=== PATIENT | male | born 1965 | race Caucasian/White ===

== ENCOUNTER 2022-02-28 17:39 | Inpatient (IN) | payer MEDICAID ==
[~2022-02-28] VITALS: Ht 165.1 cm; Wt 112.0 kg
[~2022-02-28 17:39] MED LIST: ABIL5TAB OR; ALLE25CA OR; HYDR25TA6 OR; SIMV20TA2 OR; cogentin PO; haldol PO; haldol decanoate IM
[2022-02-28 19:40] LABS: HEMATOCRIT 45.4 % (42.0-52.0); HEMOGLOBIN 14.7 g/dl (13.5-17.5); MEAN CORPUSCULAR HEMOGLOBIN 31.2 pg (27.0-33.0); MEAN CORPUSCULAR HGB CONC 32.4 g/dl (32.0-36.5); MEAN CORPUSCULAR VOLUME 96.4 fl (80.0-96.0); PLATELET COUNT, AUTOMATED 172 10^3/uL (150-450); RED BLOOD COUNT 4.71 10^6/uL (4.30-6.10); WHITE BLOOD COUNT 9.5 10^3/uL (4.0-10.0)
[2022-02-28 20:07] LABS: AMPHETAMINES LEVEL URINE NEGATIVE (NEGATIVE); BARBITURATES URINE NEGATIVE (NEGATIVE); BENZODIAZEPINES URINE NEGATIVE (NEGATIVE); CANNABINOIDS URINE NEGATIVE (NEGATIVE); COCAINE METABOLITE URINE NEGATIVE (NEGATIVE); METHADONE URINE NEGATIVE (NEGATIVE); OPIATES URINE NEGATIVE (NEGATIVE); PHENCYCLIDINE URINE NEGATIVE (NEGATIVE)
[2022-02-28 20:22] LABS: ACETAMINOPHEN LEVEL < 2.0 UG/ML (10.0-30.0); ALBUMIN 4.1 GM/DL (3.2-5.2); ALT/SGPT 28 U/L (12-78); BILIRUBIN,DIRECT 0.2 MG/DL (0.0-0.2); BILIRUBIN,TOTAL 0.4 MG/DL (0.2-1.0); BLOOD UREA NITROGEN 23 MG/DL (7-18); CALCIUM LEVEL 9.1 MG/DL (8.5-10.1); CARBON DIOXIDE LEVEL 25 MEQ/L (21-32); CHLORIDE LEVEL 111 MEQ/L (98-107); CREATININE FOR GFR 0.87 MG/DL (0.70-1.30); ETHYL ALCOHOL (ETHANOL) < 0.003 % (0.000-0.010); GLOMERULAR FILTRATION RATE > 60.0 (>56); GLUCOSE, FASTING 104 MG/DL (70-100); POTASSIUM SERUM 4.6 MEQ/L (3.5-5.1); SALICYLATE LEVEL < 1.7 MG/DL (5.0-30.0); SODIUM LEVEL 140 MEQ/L (136-145); TOTAL PROTEIN 7.7 GM/DL (6.4-8.2)
[2022-03-02] MEDS ORDERED: pt comment (09:55)
[2022-03-02] MEDS ORDERED: D200CAP3 PO (19:04)
[2022-03-02] MEDS ORDERED: SERO1TAB PO (19:04)
[2022-03-02] MEDS ORDERED: TOPA100T12 PO (19:04)
[2022-03-02] MEDS ORDERED: DOCU100C16 PO (19:04)
[2022-03-02] MEDS ORDERED: NALT50TA4 PO (19:04)
[2022-03-02] MEDS ORDERED: METF10004 PO (19:04)
[2022-03-02] MEDS ORDERED: FLUO20CA22 PO (19:04)
[2022-03-02] MEDS ORDERED: ABIL1INJ2 IM (19:04)
[2022-03-02] MEDS ORDERED: ATOR1TAB21 PO (19:04)
[2022-03-02] MEDS ORDERED: MED REC COMMENT (19:07)
[2022-03-02] MEDS ORDERED: HOME MED LIST COMPLETE! XX SCH (19:10)
[2022-03-02] MEDS: QUEtiapine FUMARATE 100 MG TAB PO SCH (20:57)
[2022-03-02] MEDS: TOPIRAMATE (TopAMAX) 100 MG TAB PO SCH (20:58)
[2022-03-02] MEDS ORDERED: metFORMIN (GLUCOPHAGE) 1000MG TABLET PO SCH (21:00)
[2022-03-03] MEDS: ATORVASTATIN 20 MG TAB PO SCH (08:27)
[2022-03-03] MEDS: metFORMIN (GLUCOPHAGE) 1000MG TABLET PO SCH ×2 (08:27→18:42)
[2022-03-03] MEDS: FLUoxetine 20MG CAP PO SCH (08:28)
[2022-03-03] MEDS: TOPIRAMATE (TopAMAX) 100 MG TAB PO SCH ×2 (08:28→20:55)
[2022-03-03] MEDS: NALTREXONE 50 MG TAB PO SCH (12:29)
[2022-03-03] MEDS: QUEtiapine FUMARATE 100 MG TAB PO SCH (20:55)
[2022-03-04] MEDS: NALTREXONE 50 MG TAB PO SCH (09:00)
[2022-03-04] MEDS: metFORMIN (GLUCOPHAGE) 1000MG TABLET PO SCH ×2 (09:23→17:30)
[2022-03-04] MEDS: TOPIRAMATE (TopAMAX) 100 MG TAB PO SCH ×2 (09:23→20:15)
[2022-03-04] MEDS: FLUoxetine 20MG CAP PO SCH (09:23)
[2022-03-04] MEDS: ATORVASTATIN 20 MG TAB PO SCH (09:23)
[2022-03-04] MEDS ORDERED: diphenhydrAMINE 25MG CAP PO PRN (13:20)
[2022-03-04] MEDS ORDERED: MOM 30ML SUSPENSION UDC PO PRN (13:20)
[2022-03-04] MEDS ORDERED: MAALOX 30 ML SUSP *UDC PO PRN (13:20)
[2022-03-04] MEDS ORDERED: LORazepam 1 MG TAB PO PRN (13:20)
[2022-03-04] MEDS ORDERED: IBUPROFEN 400MG TAB PO PRN (13:20)
[2022-03-04 14:30] LABS: RSV AMPLIFICATION NEGATIVE (NEGATIVE)
[2022-03-04 15:04] VITALS: BP 139/85
[2022-03-04] MEDS: QUEtiapine FUMARATE 100 MG TAB PO SCH (20:15)
[2022-03-04] MEDS: DOCUSATE SODIUM 100MG CAPSULE PO SCH (20:15)
[2022-03-05 06:52] VITALS: BP 119/67
[2022-03-05] MEDS: TOPIRAMATE (TopAMAX) 100 MG TAB PO SCH ×2 (07:45→20:25)
[2022-03-05] MEDS: FLUoxetine 20MG CAP PO SCH (07:46)
[2022-03-05] MEDS: metFORMIN (GLUCOPHAGE) 1000MG TABLET PO SCH (07:46)
[2022-03-05] MEDS: NALTREXONE 50 MG TAB PO SCH (07:47)
[2022-03-05] MEDS: DOCUSATE SODIUM 100MG CAPSULE PO SCH ×2 (07:47→20:25)
[2022-03-05] MEDS ORDERED: NICOTINE 21MG/24HR 1 EA TRANSDERMAL TD SCH (09:00)
[2022-03-05 10:48] LABS: HEMOGLOBIN A1c 5.2 %
[2022-03-05 10:54] LABS: CHOLESTEROL RISK RATIO 2.561 (<5)
[2022-03-05 16:34] VITALS: BP 133/63
[2022-03-05] MEDS: QUEtiapine FUMARATE 100 MG TAB PO SCH (20:25)
[2022-03-05] MEDS ORDERED: ATORVASTATIN 20 MG TAB PO SCH (21:00)
[2022-03-06 06:39] VITALS: BP 110/58
[2022-03-06] MEDS: DOCUSATE SODIUM 100MG CAPSULE PO SCH ×2 (08:30→21:08)
[2022-03-06] MEDS: TOPIRAMATE (TopAMAX) 100 MG TAB PO SCH ×2 (08:31→21:08)
[2022-03-06] MEDS: FLUoxetine 20MG CAP PO SCH (08:31)
[2022-03-06] MEDS: NALTREXONE 50 MG TAB PO SCH (08:31)
[2022-03-06 18:51] VITALS: BP 127/64
[2022-03-06] MEDS: QUEtiapine FUMARATE 100 MG TAB PO SCH (21:08)
[2022-03-07 05:48] VITALS: BP 118/71
[2022-03-07] MEDS: DOCUSATE SODIUM 100MG CAPSULE PO SCH ×2 (07:55→20:30)
[2022-03-07] MEDS: FLUoxetine 20MG CAP PO SCH (07:55)
[2022-03-07] MEDS: TOPIRAMATE (TopAMAX) 100 MG TAB PO SCH ×2 (07:56→20:30)
[2022-03-07] MEDS: NALTREXONE 50 MG TAB PO SCH (07:56)
[2022-03-07 16:16] VITALS: BP 114/60
[2022-03-07] MEDS: QUEtiapine FUMARATE 100 MG TAB PO SCH (20:30)
[2022-03-08 06:13] VITALS: BP 114/67
[2022-03-08] MEDS: TOPIRAMATE (TopAMAX) 100 MG TAB PO SCH ×2 (09:21→20:26)
[2022-03-08] MEDS: FLUoxetine 20MG CAP PO SCH (09:21)
[2022-03-08] MEDS: DOCUSATE SODIUM 100MG CAPSULE PO SCH ×2 (09:21→20:26)
[2022-03-08] MEDS: NALTREXONE 50 MG TAB PO SCH (09:21)
[2022-03-08 16:26] VITALS: BP 107/57
[2022-03-08] MEDS: QUEtiapine FUMARATE 100 MG TAB PO SCH (20:26)
[2022-03-09 06:28] VITALS: BP 116/72
[2022-03-09] MEDS: TOPIRAMATE (TopAMAX) 100 MG TAB PO SCH ×2 (07:56→20:51)
[2022-03-09] MEDS: FLUoxetine 20MG CAP PO SCH (07:56)
[2022-03-09] MEDS: DOCUSATE SODIUM 100MG CAPSULE PO SCH ×2 (07:56→20:51)
[2022-03-09] MEDS: NALTREXONE 50 MG TAB PO SCH (07:56)
[2022-03-09] MEDS: QUEtiapine FUMARATE 100 MG TAB PO SCH (20:51)
[2022-03-10 06:19] VITALS: BP 105/51
[2022-03-10] MEDS: NALTREXONE 50 MG TAB PO SCH (08:13)
[2022-03-10] MEDS: FLUoxetine 20MG CAP PO SCH (08:13)
[2022-03-10] MEDS: DOCUSATE SODIUM 100MG CAPSULE PO SCH ×2 (08:13→20:09)
[2022-03-10] MEDS: TOPIRAMATE (TopAMAX) 100 MG TAB PO SCH ×2 (08:13→20:09)
[2022-03-10 18:14] VITALS: BP 117/60
[2022-03-10] MEDS: QUEtiapine FUMARATE 100 MG TAB PO SCH (20:09)
[2022-03-11 06:04] VITALS: BP 129/62
[2022-03-11] MEDS: FLUoxetine 20MG CAP PO SCH (08:02)
[2022-03-11] MEDS: DOCUSATE SODIUM 100MG CAPSULE PO SCH ×2 (08:02→20:27)
[2022-03-11] MEDS: TOPIRAMATE (TopAMAX) 100 MG TAB PO SCH ×2 (08:02→20:27)
[2022-03-11] MEDS: NALTREXONE 50 MG TAB PO SCH (08:03)
[2022-03-11 18:10] VITALS: BP 110/63
[2022-03-11] MEDS: QUEtiapine FUMARATE 100 MG TAB PO SCH (20:27)
[2022-03-12 06:04] VITALS: BP 118/58
[2022-03-12] MEDS: DOCUSATE SODIUM 100MG CAPSULE PO SCH ×2 (08:02→20:07)
[2022-03-12] MEDS: TOPIRAMATE (TopAMAX) 100 MG TAB PO SCH ×2 (08:02→20:07)
[2022-03-12] MEDS: FLUoxetine 20MG CAP PO SCH (08:02)
[2022-03-12] MEDS: NALTREXONE 50 MG TAB PO SCH (08:02)
[2022-03-12 17:53] VITALS: BP 117/56
[2022-03-12] MEDS: QUEtiapine FUMARATE 100 MG TAB PO SCH (20:07)
[2022-03-13 06:04] VITALS: BP 103/57
[2022-03-13] MEDS: NALTREXONE 50 MG TAB PO SCH (09:20)
[2022-03-13] MEDS: FLUoxetine 20MG CAP PO SCH (09:20)
[2022-03-13] MEDS: DOCUSATE SODIUM 100MG CAPSULE PO SCH ×2 (09:21→20:03)
[2022-03-13] MEDS: TOPIRAMATE (TopAMAX) 100 MG TAB PO SCH ×2 (09:21→20:03)
[2022-03-13 18:14] VITALS: BP 123/72
[2022-03-13] MEDS: QUEtiapine FUMARATE 100 MG TAB PO SCH (20:03)
[2022-03-14] MEDS: FLUoxetine 20MG CAP PO SCH (08:15)
[2022-03-14] MEDS: TOPIRAMATE (TopAMAX) 100 MG TAB PO SCH ×2 (08:16→20:18)
[2022-03-14] MEDS: DOCUSATE SODIUM 100MG CAPSULE PO SCH ×2 (08:16→20:18)
[2022-03-14] MEDS: NALTREXONE 50 MG TAB PO SCH (08:16)
[2022-03-14 18:03] VITALS: BP 116/66
[2022-03-14] MEDS: QUEtiapine FUMARATE 100 MG TAB PO SCH (20:18)
[2022-03-15 06:37] VITALS: BP 119/66
[2022-03-15] MEDS: NALTREXONE 50 MG TAB PO SCH (08:31)
[2022-03-15] MEDS: FLUoxetine 20MG CAP PO SCH (08:31)
[2022-03-15] MEDS: DOCUSATE SODIUM 100MG CAPSULE PO SCH ×2 (08:31→19:50)
[2022-03-15] MEDS: TOPIRAMATE (TopAMAX) 100 MG TAB PO SCH ×2 (08:32→19:50)
[2022-03-15 18:00] VITALS: BP 122/73
[2022-03-15] MEDS: traZODone 50 MG TAB PO PRN (19:50)
[2022-03-15] MEDS: QUEtiapine FUMARATE 100 MG TAB PO SCH (19:51)
[2022-03-16 06:18] VITALS: BP 101/60
[2022-03-16] MEDS: TOPIRAMATE (TopAMAX) 100 MG TAB PO SCH ×2 (08:19→21:33)
[2022-03-16] MEDS: FLUoxetine 20MG CAP PO SCH (08:19)
[2022-03-16] MEDS: DOCUSATE SODIUM 100MG CAPSULE PO SCH ×2 (08:20→21:33)
[2022-03-16] MEDS: NALTREXONE 50 MG TAB PO SCH (08:20)
[2022-03-16 18:35] VITALS: BP 123/77
[2022-03-16] MEDS: QUEtiapine FUMARATE 100 MG TAB PO SCH (21:33)
[2022-03-17 05:38] VITALS: BP 119/60
[2022-03-17] MEDS: FLUoxetine 20MG CAP PO SCH (09:20)
[2022-03-17] MEDS: NALTREXONE 50 MG TAB PO SCH (09:21)
[2022-03-17] MEDS: TOPIRAMATE (TopAMAX) 100 MG TAB PO SCH ×2 (09:21→20:46)
[2022-03-17] MEDS: DOCUSATE SODIUM 100MG CAPSULE PO SCH ×2 (09:21→20:46)
[2022-03-17 16:28] VITALS: BP 111/59
[2022-03-17] MEDS: QUEtiapine FUMARATE 100 MG TAB PO SCH (20:45)
[2022-03-18 06:19] VITALS: BP 132/87
[2022-03-18] MEDS: NALTREXONE 50 MG TAB PO SCH (07:59)
[2022-03-18] MEDS: TOPIRAMATE (TopAMAX) 100 MG TAB PO SCH ×2 (07:59→20:13)
[2022-03-18] MEDS: FLUoxetine 20MG CAP PO SCH (07:59)
[2022-03-18] MEDS: DOCUSATE SODIUM 100MG CAPSULE PO SCH ×2 (07:59→20:13)
[2022-03-18 16:19] VITALS: BP 114/66
[2022-03-18] MEDS: QUEtiapine FUMARATE 100 MG TAB PO SCH (20:13)
[2022-03-19 06:16] VITALS: BP 116/64
[2022-03-19] MEDS: DOCUSATE SODIUM 100MG CAPSULE PO SCH ×2 (08:38→20:58)
[2022-03-19] MEDS: NALTREXONE 50 MG TAB PO SCH (08:38)
[2022-03-19] MEDS: FLUoxetine 20MG CAP PO SCH (08:38)
[2022-03-19] MEDS: TOPIRAMATE (TopAMAX) 100 MG TAB PO SCH ×2 (08:38→20:58)
[2022-03-19] MEDS: QUEtiapine FUMARATE 100 MG TAB PO SCH (20:58)
[2022-03-20 06:14] VITALS: BP 115/63
[2022-03-20] MEDS: NALTREXONE 50 MG TAB PO SCH (08:02)
[2022-03-20] MEDS: DOCUSATE SODIUM 100MG CAPSULE PO SCH ×2 (08:02→20:39)
[2022-03-20] MEDS: TOPIRAMATE (TopAMAX) 100 MG TAB PO SCH ×2 (08:03→20:39)
[2022-03-20] MEDS: FLUoxetine 20MG CAP PO SCH (08:03)
[2022-03-20 18:17] VITALS: BP 120/70
[2022-03-20] MEDS: QUEtiapine FUMARATE 100 MG TAB PO SCH (20:39)
[2022-03-21 05:59] VITALS: BP 126/68
[2022-03-21] MEDS: FLUoxetine 20MG CAP PO SCH (08:09)
[2022-03-21] MEDS: TOPIRAMATE (TopAMAX) 100 MG TAB PO SCH ×2 (08:09→20:18)
[2022-03-21] MEDS: DOCUSATE SODIUM 100MG CAPSULE PO SCH ×2 (08:09→20:18)
[2022-03-21] MEDS: NALTREXONE 50 MG TAB PO SCH (08:09)
[2022-03-21 16:36] VITALS: BP 133/66
[2022-03-21] MEDS: QUEtiapine FUMARATE 100 MG TAB PO SCH (20:18)
[2022-03-22 06:38] VITALS: BP 105/63
[2022-03-22] MEDS: NALTREXONE 50 MG TAB PO SCH (08:08)
[2022-03-22] MEDS: FLUoxetine 20MG CAP PO SCH (08:08)
[2022-03-22] MEDS: TOPIRAMATE (TopAMAX) 100 MG TAB PO SCH ×2 (08:08→20:50)
[2022-03-22] MEDS: DOCUSATE SODIUM 100MG CAPSULE PO SCH ×2 (08:08→20:50)
[2022-03-22 16:16] VITALS: BP 125/68
[2022-03-22] MEDS: QUEtiapine FUMARATE 100 MG TAB PO SCH (20:50)
[2022-03-23 06:30] VITALS: BP 105/60
[2022-03-23] MEDS: TOPIRAMATE (TopAMAX) 100 MG TAB PO SCH ×2 (07:57→20:34)
[2022-03-23] MEDS: FLUoxetine 20MG CAP PO SCH (07:58)
[2022-03-23] MEDS: NALTREXONE 50 MG TAB PO SCH (07:58)
[2022-03-23] MEDS: DOCUSATE SODIUM 100MG CAPSULE PO SCH ×2 (07:58→20:34)
[2022-03-23 16:25] VITALS: BP 118/61
[2022-03-23] MEDS: traZODone 50 MG TAB PO PRN (20:34)
[2022-03-23] MEDS: QUEtiapine FUMARATE 100 MG TAB PO SCH (20:34)
[2022-03-24 06:14] VITALS: BP 106/59
[2022-03-24] MEDS: DOCUSATE SODIUM 100MG CAPSULE PO SCH ×2 (07:51→20:24)
[2022-03-24] MEDS: NALTREXONE 50 MG TAB PO SCH (07:52)
[2022-03-24] MEDS: FLUoxetine 20MG CAP PO SCH (07:52)
[2022-03-24] MEDS: TOPIRAMATE (TopAMAX) 100 MG TAB PO SCH ×2 (07:52→20:24)
[2022-03-24 17:20] VITALS: BP 130/77
[2022-03-24] MEDS: QUEtiapine FUMARATE 100 MG TAB PO SCH (20:24)
[2022-03-25 06:17] VITALS: BP 126/76
[2022-03-25] MEDS: NALTREXONE 50 MG TAB PO SCH (08:01)
[2022-03-25] MEDS: DOCUSATE SODIUM 100MG CAPSULE PO SCH ×2 (08:01→20:04)
[2022-03-25] MEDS: FLUoxetine 20MG CAP PO SCH (08:01)
[2022-03-25] MEDS: TOPIRAMATE (TopAMAX) 100 MG TAB PO SCH ×2 (08:01→20:04)
[2022-03-25 18:16] VITALS: BP 120/77
[2022-03-25] MEDS: QUEtiapine FUMARATE 100 MG TAB PO SCH (20:04)
[2022-03-26 06:09] VITALS: BP 110/65
[2022-03-26] MEDS: FLUoxetine 20MG CAP PO SCH (07:57)
[2022-03-26] MEDS: NALTREXONE 50 MG TAB PO SCH (07:58)
[2022-03-26] MEDS: TOPIRAMATE (TopAMAX) 100 MG TAB PO SCH ×2 (07:58→20:32)
[2022-03-26] MEDS: DOCUSATE SODIUM 100MG CAPSULE PO SCH ×2 (07:58→20:32)
[2022-03-26] MEDS ORDERED: ARIPiprazole MONOHYDRATE 400 MG INJ (ABILIFY)(FREE PSY INPT ONLY) IM ONE (13:00)
[2022-03-26 18:17] VITALS: BP 111/65
[2022-03-26] MEDS: QUEtiapine FUMARATE 100 MG TAB PO SCH (20:32)
[2022-03-27 06:40] VITALS: BP 117/59
[2022-03-27] MEDS: NALTREXONE 50 MG TAB PO SCH (07:58)
[2022-03-27] MEDS: DOCUSATE SODIUM 100MG CAPSULE PO SCH ×2 (07:58→20:30)
[2022-03-27] MEDS: TOPIRAMATE (TopAMAX) 100 MG TAB PO SCH ×2 (07:58→20:30)
[2022-03-27] MEDS: FLUoxetine 20MG CAP PO SCH (07:58)
[2022-03-27 19:26] VITALS: BP 123/78
[2022-03-27] MEDS: QUEtiapine FUMARATE 100 MG TAB PO SCH (20:30)
[2022-03-28 06:12] VITALS: BP 141/81
[2022-03-28] MEDS: FLUoxetine 20MG CAP PO SCH (07:16)
[2022-03-28] MEDS: DOCUSATE SODIUM 100MG CAPSULE PO SCH (07:16)
[2022-03-28] MEDS: TOPIRAMATE (TopAMAX) 100 MG TAB PO SCH (07:16)
[2022-03-28] MEDS: NALTREXONE 50 MG TAB PO SCH (07:16)
[2022-03-28 13:14] VITALS: BP 135/65
== END 2022-03-28 13:30 | disposition short-term general hospital (02) | DRG 750 ==
LOC: M ED 17:39 → M ED INP 03-04 13:20 → M PSY 03-04 15:04
PROVIDERS: ADMIT Student in an Organized Health Care Education/Training Program; ATTEND Student in an Organized Health Care Education/Training Program
DX: F20.9 Schizophrenia, unspecified (principal); F42.9 Obsessive-compulsive disorder, unspecified; F65.9 Paraphilia, unspecified; F79 Unspecified intellectual disabilities; Z91.51 Personal history of suicidal behavior; E11.9 Type 2 diabetes mellitus without complications; I10 Essential (primary) hypertension; Z62.810 Personal history of physical and sexual abuse in childhood; F31.9 Bipolar disorder, unspecified; Z20.822 Contact with and (suspected) exposure to COVID-19; Z79.84 Long term (current) use of oral hypoglycemic drugs; Z79.899 Other long term (current) drug therapy; M10.9 Gout, unspecified; E78.5 Hyperlipidemia, unspecified; R22.42 Localized swelling, mass and lump, left lower limb